=== PATIENT | female | born 1950 | race Caucasian/White ===

== ENCOUNTER 2020-04-29 14:17 | Inpatient (IN) | payer BC, MEDICAID ==
[~2020-04-29] VITALS: Ht 160 cm; Wt 78.5 kg
[2020-04-29 15:04] LABS: BASOPHILS % 0.3 % (0.0-2.0); HEMATOCRIT. 39.6 % (36.0-48.0); HEMOGLOBIN. 13.1 g/dL (12.0-16.0); LYMPHOCYTES % 21.2 % (20.0-50.0); MEAN CORPUSCULAR HEMOGLOBIN 28.2 pg (28.0-32.0); MEAN CORPUSCULAR VOLUME 84.9 fL (81.0-99.0); MEAN PLATELET VOLUME 8.7 fl (7.4-10.4); NEUTROPHILS % 69.5 % (40.0-76.0); PLATELET 125 x1000/uL (130-400); RED BLOOD CELL COUNT 4.66 mill/uL (4.2-5.4); RED CELL DISTRIBUTION WIDTH 14.5 % (11.6-14.6)
[2020-04-29 15:09] LABS: CHLORIDE 100 mEq/L (98-107)
[2020-04-29] MEDS ORDERED: AZITHROMYCIN 500 MG in DEXT 5% WATER 250 ML IV ONE (17:15)
[2020-04-29] MEDS ORDERED: CEFTRIAXONE 1 G PREMIX 50 ML IV ONE (17:15)
[2020-04-29] MEDS ORDERED: ASPIRIN 81MG TABLET PO ONE (17:15)
[2020-04-29 17:43] LABS: PARTIAL THROMBOPLASTIN TIME 32.6 sec (23.4-31.0)
[2020-04-30 01:06] LABS: CLARITY URINE CLEAR (CLEAR); COLOR URINE YELLOW (YELLOW); KETONES URINE 2+ (NEGATIVE); LEUKOCYTE ESTERASE URINE NEGATIVE (NEGATIVE); NITRITE URINE NEGATIVE (NEGATIVE); OCCULT BLOOD URINE NEGATIVE (NEGATIVE); PH URINE 5.5 (4.5-8.0); PROTEIN URINE 2+ (NEGATIVE); SPECIFIC GRAVITY URINE 1.027 (1.005-1.030); UROBILINOGEN URINE 0.2 E.U./dL (0.2-1.0)
[2020-04-30] MEDS ORDERED: ONDANSETRON HCL 4MG/2ML INJ IV PRN (10:15)
[2020-04-30 12:34] VITALS: BP 155/75
[2020-04-30] MEDS: METOPROLOL TARTRATE 25MG TABLET PO SCH ×2 (13:08→21:00)
[2020-04-30] MEDS: ENOXAPARIN 40MG/0.4ML SYR SUBCUT SCH (13:08)
[2020-04-30] MEDS ORDERED: METF-816 MT (13:19)
[2020-04-30 16:00] VITALS: BP 178/69
[2020-04-30] MEDS ORDERED: DEXTROSE 50% WATER 50ML SYRINGE IV PRN (17:00)
[2020-04-30] MEDS: BLOOD SUGAR DIAGNOSTIC STRIP TEST SCH ×2 (17:15→21:00)
[2020-04-30] MEDS: ACETAMINOPHEN 325MG TABLET PO PRN (17:44)
[2020-04-30] MEDS: CEFTRIAXONE 1,000 MG in DEXTROSE 5% WATER 50 ML IV SCH (17:44)
[2020-04-30] MEDS: METFORMIN HCL 500MG TABLET PO SCH (17:44)
[2020-04-30] MEDS: CLONIDINE 0.1MG TABLET PO PRN (17:45)
[2020-04-30] MEDS: INSULIN LISPRO 100 UNITS/ML SUBCUT SCH ×2 (17:59→22:46)
[2020-04-30 18:47] VITALS: BP 135/64
[2020-04-30 20:00] VITALS: BP 126/56
[2020-04-30] MEDS ORDERED: METFORMIN HCL 500MG TABLET PO SCH (20:00)
[2020-05-01] VITALS: BP 140/62
[2020-05-01 04:00] VITALS: BP 161/68
[2020-05-01] MEDS: CLONIDINE 0.1MG TABLET PO PRN (06:28)
[2020-05-01] MEDS: BLOOD SUGAR DIAGNOSTIC STRIP TEST SCH ×4 (06:42→21:59)
[2020-05-01] MEDS: INSULIN LISPRO 100 UNITS/ML SUBCUT SCH ×4 (06:53→21:00)
[2020-05-01] MEDS ORDERED: GUAIFENESIN 200MG/10ML SUGAR FREE UDC PO PRN (07:45)
[2020-05-01 08:00] VITALS: BP 126/67
[2020-05-01] MEDS: ENOXAPARIN 40MG/0.4ML SYR SUBCUT SCH (08:15)
[2020-05-01] MEDS: ACETAMINOPHEN 325MG TABLET PO PRN ×2 (08:16→17:27)
[2020-05-01] MEDS: AZITHROMYCIN 250 MG TABLET PO SCH (08:16)
[2020-05-01] MEDS: METFORMIN HCL 500MG TABLET PO SCH ×2 (08:16→18:22)
[2020-05-01] MEDS: METOPROLOL TARTRATE 25MG TABLET PO SCH ×2 (08:17→21:58)
[2020-05-01 08:21] LABS: BASOPHILS % 0.3 % (0.0-2.0); HEMATOCRIT. 35.4 % (36.0-48.0); LYMPHOCYTES % 20.4 % (20.0-50.0); MEAN CORPUSCULAR HEMOGLOBIN 28.3 pg (28.0-32.0); MEAN CORPUSCULAR VOLUME 83.6 fL (81.0-99.0); MEAN PLATELET VOLUME 9.2 fl (7.4-10.4); MONOCYTES % 8.2 % (2.0-8.0); NEUTROPHILS % 71.1 % (40.0-76.0); PLATELET 136 x1000/uL (130-400); RED BLOOD CELL COUNT 4.23 mill/uL (4.2-5.4); RED CELL DISTRIBUTION WIDTH 14.3 % (11.6-14.6)
[2020-05-01 08:41] LABS: CHLORIDE 100 mEq/L (98-107)
[2020-05-01 12:00] VITALS: BP 156/68
[2020-05-01] MEDS: GUAIFENESIN 200MG/10ML SUGAR FREE UDC PO PRN (13:13)
[2020-05-01 16:00] VITALS: BP 167/73
[2020-05-01] MEDS: CEFTRIAXONE 1,000 MG in DEXTROSE 5% WATER 50 ML IV SCH (18:23)
[2020-05-01 20:00] VITALS: BP 124/75
[2020-05-01] MEDS: AMLODIPINE 10MG TABLET PO SCH (21:58)
[2020-05-02] VITALS: BP 142/72
[2020-05-02 04:00] VITALS: BP 148/71
[2020-05-02] MEDS: BLOOD SUGAR DIAGNOSTIC STRIP TEST SCH ×2 (05:57→12:23)
[2020-05-02 08:00] VITALS: BP 148/68
[2020-05-02] MEDS: METFORMIN HCL 500MG TABLET PO SCH (08:18)
[2020-05-02] MEDS: GUAIFENESIN 200MG/10ML SUGAR FREE UDC PO PRN (08:18)
[2020-05-02] MEDS: AMLODIPINE 10MG TABLET PO SCH (08:19)
[2020-05-02] MEDS: METOPROLOL TARTRATE 25MG TABLET PO SCH (08:19)
[2020-05-02] MEDS: ENOXAPARIN 40MG/0.4ML SYR SUBCUT SCH (08:19)
[2020-05-02] MEDS: AZITHROMYCIN 250 MG TABLET PO SCH (08:20)
[2020-05-02] MEDS: INSULIN LISPRO 100 UNITS/ML SUBCUT SCH ×2 (08:21→12:31)
[2020-05-02] MEDS ORDERED: METO25TA6 PO (11:54)
[2020-05-02] MEDS ORDERED: AMLO10TA80 PO (11:54)
[2020-05-02] MEDS ORDERED: DEXTL PO (11:54)
[2020-05-02 12:00] VITALS: BP 136/76
[2020-05-02 13:35] VITALS: BP 141/75
[2020-05-02 16:00] VITALS: BP 153/75
== END 2020-05-02 17:51 | disposition home or self-care (01) | DRG 871 ==
LOC: ER 14:53 → MICUSO 23:48 → 8WST 04-30 11:15
PROVIDERS: ADMIT Internal Medicine; ATTEND Internal Medicine
DX: A41.89 Other specified sepsis (principal); U07.1 COVID-19; J12.89 Other viral pneumonia; E87.1 Hypo-osmolality and hyponatremia; Z20.828 Contact with and (suspected) exposure to other viral communicable diseases; E11.8 Type 2 diabetes mellitus with unspecified complications; E66.3 Overweight; I10 Essential (primary) hypertension; Z79.899 Other long term (current) drug therapy; Z68.30 Body mass index [BMI] 30.0-30.9, adult
CPT/HCPCS: 36415; 71045; 80048; 80053; 81003; 82962; 83036; 83605; 83880; 84145; 84484; 85025; 93005; 96365; 99285; J0456; J0696; J1650; J1815; J7040; J7060; U0003